=== PATIENT | male | born 1970 | race Native Hawaiian/Other Pacific Islander ===

== ENCOUNTER 2017-07-01 07:42 | Emergency (ER) | payer OTHER ==
[~2017-07-01] VITALS: Ht 190.5 cm; Wt 113.4 kg
== END 2017-07-01 09:00 | disposition home or self-care (01) ==
LOC: ED 07:42
DX: M72.2 Plantar fascial fibromatosis (principal)
CPT/HCPCS: 36415; 84550; 99283

== ENCOUNTER 2018-01-05 17:52 | Emergency (ER) | payer OTHER ==
[~2018-01-05] VITALS: Ht 188 cm; Wt 111.6 kg
[2018-01-05 19:11] VITALS: BP 162/104; TEMP 98.2
== END 2018-01-05 19:15 | disposition home or self-care (01) ==
LOC: ED 17:52
DX: K04.7 Periapical abscess without sinus (principal)
CPT/HCPCS: 36415; 96372; 99283; J1885

== ENCOUNTER 2018-11-03 22:40 | Emergency (ER) | payer OTHER ==
[~2018-11-03] VITALS: Ht 190.5 cm; Wt 108.9 kg
[2018-11-03] MEDS ORDERED: LISI20TA11 PO (23:01)
[2018-11-03] MEDS ORDERED: LISI20TA31 PO (23:01)
[2018-11-04 00:31] VITALS: BP 155/92; TEMP 97.5
== END 2018-11-04 00:31 | disposition home or self-care (01) ==
LOC: ED 22:40
DX: K08.89 Other specified disorders of teeth and supporting structures (principal); K04.7 Periapical abscess without sinus; I10 Essential (primary) hypertension
CPT/HCPCS: 96372; 99282; J1885

== ENCOUNTER 2019-01-22 21:19 | Emergency (ER) | payer OTHER ==
[~2019-01-22] VITALS: Ht 190.5 cm; Wt 108.9 kg
[~2019-01-22 21:19] MED LIST: LISI20TA11 PO; LISI20TA31 PO
[2019-01-22 22:55] VITALS: BP 162/94; TEMP 98
== END 2019-01-22 22:56 | disposition home or self-care (01) ==
LOC: ED 21:19
DX: R13.19 Other dysphagia (principal)
CPT/HCPCS: 87651; 96372; 99283; J1610

== ENCOUNTER 2019-08-09 18:14 | Emergency (ER) | payer OTHER ==
[~2019-08-09] VITALS: Ht 190.5 cm; Wt 108.9 kg
[2019-08-09 18:46] VITALS: TEMP 98.2
[2019-08-09 19:10] LABS: PLATELET COUNT 239 K/uL (142-355)
[2019-08-09 19:34] LABS: POTASSIUM 3.3 mmol/L (3.6-5.2)
[2019-08-09 21:00] VITALS: BP 158/97
== END 2019-08-09 21:05 | disposition home or self-care (01) ==
LOC: ED 18:14
PROVIDERS: Emergency Medicine
DX: I10 Essential (primary) hypertension (principal)
CPT/HCPCS: 80053; 85027; 93005; 96374; 96375; 96376; 99284; J0360; J3490

== ENCOUNTER 2020-11-21 06:46 | Emergency (ER) | payer OTHER ==
[~2020-11-21] VITALS: Ht 190.5 cm; Wt 108.9 kg
[2020-11-21 06:50] VITALS: TEMP 98.1
[2020-11-21 07:24] LABS: PLATELET COUNT 229 K/uL (142-355)
[2020-11-21 09:32] VITALS: BP 138/93
== END 2020-11-21 09:32 | disposition home or self-care (01) ==
LOC: ED 06:46
PROVIDERS: Family Medicine
DX: R10.13 Epigastric pain (principal); R10.12 Left upper quadrant pain; I10 Essential (primary) hypertension; K21.9 Gastro-esophageal reflux disease without esophagitis
CPT/HCPCS: 36415; 80053; 80320; 81000; 82150; 83690; 84484; 85027; 96374; 99284; J1885

== ENCOUNTER 2022-01-02 20:34 | Emergency (ER) | payer OTHER ==
[~2022-01-02] VITALS: Ht 190.5 cm; Wt 106.6 kg
[2022-01-02 21:46] LABS: PLATELET COUNT 267 K/uL (142-355)
[2022-01-02 22:55] VITALS: BP 154/90; TEMP 97.3
== END 2022-01-02 22:55 | disposition home or self-care (01) ==
LOC: ED 20:34
PROVIDERS: Emergency Medicine Emergency Medical Services
PROC: 0H9DXZZ Drainage of Right Lower Arm Skin, External Approach (ICD-10-PCS; principal; 2022-01-02)
DX: L02.413 Cutaneous abscess of right upper limb (principal)
CPT/HCPCS: 36415; 85027; 87040; 87070; 87205; 96365; 96372; 96375; 96376; 99284; J2001; J2270; J2405; J3370

== ENCOUNTER 2022-01-05 11:43 | Emergency (ER) | payer OTHER ==
[~2022-01-05] VITALS: Ht 190.5 cm; Wt 106.6 kg
[2022-01-05 11:45] VITALS: BP 166/88; TEMP 98
== END 2022-01-05 13:05 | disposition home or self-care (01) ==
LOC: ED 11:43
DX: L03.113 Cellulitis of right upper limb (principal); Z48.01 Encounter for change or removal of surgical wound dressing
CPT/HCPCS: 99282